=== PATIENT | female | born 1965 | race Caucasian/White ===

== ENCOUNTER → 2017-07-28 13:38 | Outpatient (CLI) | payer BC | END | disposition home or self-care (01) | LOC: D.MRI 13:38 | DX: M25.561 Pain in right knee (principal) ==

== ENCOUNTER → 2019-12-13 10:50 | Outpatient (CLI) | payer BC | END | disposition home or self-care (01) | LOC: D.RAD 10:50 | PROVIDERS: ATTEND Family Medicine | DX: M54.16 Radiculopathy, lumbar region (principal) ==